=== PATIENT | female | born 1975 | race Caucasian/White ===

== ENCOUNTER 2018-03-17 17:56 | Emergency (ER) | payer BC, MEDICAID ==
[2018-03-17] MEDS ORDERED: METHYLPREDNISOLONE 80MG/VIAL IM ONE (18:07)
--- NOTE | 2018-03-17 18:14 | Emergency Department Record ---
History of Present Illness - General Chief complaint: Extremity Problem Stated complaint: L SHOULDER PAIN Time Seen by Provider: 03/17/18 18:04 Source: Patient Mode of Arrival: Ambulatory Limitations: No limitations - History of Present Illness Initial comments: 42 yo female presents with left shoulder pain. The pain has been present for about 3 months. She has pain with lifting. No specific injury. No numbness, tingling, or redness. She fells the pain across the top of the shoulder. No history of shoulder surgery. No neck pain. No other current joint pains. She is waiting for her PCP to schedule and MRI but she has not had X rays. Onset/Timin -: Month(s) Location: Left, Shoulder -: Yes Arthralgia Radiation: Proximal Quality: Aching, Burning Improves with: Immobilization Worsens with: Palpation, Weight bearing Associated Symptoms: Denies other symptoms - Related Data Home Medications Medication Instructions Recorded Confirmed Last Taken Citalopram Hydrobromide [Celexa] 60 mg PO DAILY 03/17/18 03/17/18 1 Day Ago ~03/16/18 Previous Rx's Medication Instructions Recorded Clonazepam [Klonopin] 0.5 mg PO QHS PRN #0 tablet 11/17/15 Enalapril Maleate [Vasotec] 20 mg PO QHS tablet 11/17/15 Methylprednisolone [Medrol Dose 0 mg PO UD #1 tab.ds.pk 03/17/18 Pack] Allergies Allergy/AdvReac Type Severity Reaction Status Date / Time doxycycline [DOXYCYCLINE] Allergy Intermediate VOMITING Verified 03/17/18 18:05 erythromycin base Allergy Intermediate VOMITING Verified 03/17/18 18:05 [ERYTHROMYCIN BASE] Penicillins [PENICILLINS] Allergy Unknown PT UNSURE Verified 03/17/18 18:05 OF REACTION Travel Screening - Travel/Exposure Within Last 30 Days Have you traveled within the last 30 days?: No - Travel/Exposure Within Last Year Have you traveled outside the [place] in the last year?: No - Additonal Travel Details Have you been exposed to anyone with a communicable illness?: No - Travel Symptoms Symptom Screening: None Review of Systems Constitutional: Denies: Chills, Fever, Malaise, Weakness Eyes: Denies: Eye discharge ENT: Denies: Congestion Respiratory: Denies: Cough Cardiovascular: Denies: Chest pain Endocrine: Denies: Fatigue Gastrointestinal: Denies: Abdominal pain, Diarrhea, Nausea, Vomiting Genitourinary: Denies: Dysuria Musculoskeletal: Reports: Arthralgia Skin: Denies: Bruising, Change in color, Rash Neurological: Denies: Headache Psychiatric: Denies: Anxiety Hematological/Lymphatic: Denies: Easy bleeding, Easy bruising, Swollen glands Past Medical History - SOCIAL HISTORY Smoking Status: Current every day smoker Alcohol Use: None Drug Use: None - RESPIRATORY Hx Respiratory Disorders: No Hx Sleep Apnea: Yes Comment:: wears CPAP - CARDIOVASCULAR Hx Cardio Disorders: No Hx Hypertension: Yes - NEURO Hx Neuro Disorders: No - GI Hx GI Disorders: No Hx Reflux: Yes - Hx Genitourinary Disorders: No Hx Kidney Stones: Yes Hx UTI: Yes - ENDOCRINE Hx Endocrine Disorders: No - MUSCULOSKELETAL Hx Musculoskeletal Disorders: No - PSYCH Hx Psych Problems: Yes Hx Depression: Yes - HEMATOLOGY/ONCOLOGY Hx Hematology/Oncology Disorders: No Family Medical History Any Significant Family History?: Yes Family Hx Comment (NOT TO BE USED IN PLACE OF ITEMS BELOW): Mom and dad heart disease Hx Heart Disease: Father, Mother, Grandparents Physical Exam - General General Appearance: Alert, Oriented x3, Cooperative, No acute distress Limitations: No limitations - Head Head exam: Atraumatic, Normal inspection - Eye Eye exam: Normal appearance - ENT ENT exam: Normal exam Ear exam: Normal external inspection Nasal Exam: Normal inspection Mouth exam: Normal external inspection - Neck Neck exam: Normal inspection - Respiratory Respiratory exam: Normal lung sounds bilaterally. negative: Respiratory distress - Cardiovascular Cardiovascular Exam: Regular rate, Normal rhythm, Normal heart sounds Peripheral Pulses: 2+: Radial (L) - Extremities Extremities exam: Normal inspection, Full ROM, Normal capillary refill, Tenderness. negative: Joint swelling Image of Full Body: 1 - No pain with internal or external rotation, no warmth or redness, no visible swelling, pain does occur with abduction passive and active - Neurological Neurological exam: Alert, Normal gait, Oriented X3. negative: Motor sensory deficit - Psychiatric Psychiatric exam: Normal mood, Suicidal ideation. negative: Agitated, Anxious - Skin Skin exam: Dry, Intact, Normal color, Warm Course Vital Signs 03/17/18 17:58 Temperature 98.8 F Pulse Rate 73 Respiratory 16 Rate Blood Pressure 146/83 Pulse Ox 98 - Reevaluation(s) Reevaluation #1: 03/17/18 18:14 The examination is consistent with possible rotator cuff disease XR ordered given she has never had an XR 03/17/18 18:36 XR reviewed. No acute process. Disposition Disposition: Discharge Clinical Impression: Rotator cuff tendinitis Qualifiers: Laterality: left Qualified Code(s): M75.82 - Other shoulder lesions, left shoulder Shoulder pain, acute Qualifiers: Laterality: left Qualified Code(s): M25.512 - Pain in left shoulder Disposition: Home, Self-Care Condition: (1) Good Instructions: Rotator Cuff Tendinitis (ED) Additional Instructions: You may apply ice if you have pain or swelling Take the Medrol Dose pack as directed Use the sling for support only. Remove it every 4-6 hours and gently move your shoulder to prevent it from getting stiff Prescriptions: Methylprednisolone [Medrol Dose Pack] 0 mg PO UD #1 tab.ds.pk Forms: Patient Portal Access Time of Disposition: 18:15 Quality - Quality Measures Quality Measures: N/A - Blood Pressure Screening Does Patient Have Any of the Following: No Blood Pressure Classification: Pre-Hypertensive BP Reading Systolic Measurement: 146 Diastolic Measurement: 83 Screening for High Blood Pressure: < Pre-Hypertensive BP, F/U Documented > [ G8950] Pre-Hypertensive Follow-up Interventions: Referral to alternative/primary care provider.
--- NOTE | 2018-03-18 14:04 | RADIOLOGY REPORT ---
EXAM: SHOULDER, LEFT HISTORY: LEFT SHOULDER PAIN DUE TO LIFTING STRAIN. TECHNIQUE: Three views left shoulder. COMPARISON: None. ENCOUNTER: Initial. FINDINGS: Mild spurring at the AC joint. The left shoulder appears otherwise essentially negative. There is probably a small benign-appearing area of sclerosis in the glenoid. No definite acute fracture or dislocation of the shoulder evident. On the external rotation view, there is some air beneath the left hemidiaphragm, which although nonspecific is presumably either some air within the stomach or the splenic flexure of the colon. IMPRESSION: 1. SOME DEGENERATIVE CHANGE AT THE AC JOINT. 2. NO DEFINITE FRACTURE OR DISLOCATION OF THE LEFT SHOULDER EVIDENT. 3. SOME AIR BENEATH THE LEFT HEMIDIAPHRAGM IS PRESUMABLY WITHIN EITHER THE STOMACH OR SPLENIC FLEXURE OF THE COLON, DESCRIBED ABOVE. JOB NUMBER: [id number] [facility]
== END 2018-03-17 18:44 | disposition home or self-care (01) ==
LOC: ER 17:56
DX: M75.102 Unspecified rotator cuff tear or rupture of left shoulder, not specified as traumatic (principal); I10 Essential (primary) hypertension; F17.210 Nicotine dependence, cigarettes, uncomplicated
CPT/HCPCS: 96372; 99283; 99284; J1040

== ENCOUNTER 2018-04-23 22:56 | Emergency (ER) | payer BC, MEDICAID ==
--- NOTE | 2018-04-23 23:21 | Emergency Department Record ---
History of Present Illness - General Chief Complaint: Abdominal Pain Stated Complaint: ABD PAIN Time Seen by Provider: 04/23/18 23:15 Source: Patient Mode of Arrival: Ambulatory Limitations: No limitations - History of Present Illness Initial Comments: 43 yo male presents with two days of urinary frequency. She is going 6-8 times daily with urgency. She has very mild burning. No other current symptoms. No fever, chills, nausea, vomiting, diarrhea. No flank pain. She otherwise feels normal. Twice at night she had incontinence due to urgency. No incontinence during the daytime. MD Complaint: Other (Urinary frequency) -: Days(s) (2) Location: Suprapubic Radiation: Suprapubic Migration to: Suprapubic Quality: Fullness Consistency: Intermittent Improves With: Nothing Worsens With: Nothing Context: Other Associated Symptoms: Denies other symptoms - Related Data Previous Rx's Medication Instructions Recorded Clonazepam [Klonopin] 0.5 mg PO QHS PRN #0 tablet 11/17/15 Enalapril Maleate [Vasotec] 20 mg PO QHS tablet 11/17/15 Methylprednisolone [Medrol Dose 0 mg PO UD #1 tab.ds.pk 03/17/18 Pack] Allergies Allergy/AdvReac Type Severity Reaction Status Date / Time doxycycline [DOXYCYCLINE] Allergy Intermediate VOMITING Verified 03/17/18 18:05 erythromycin base Allergy Intermediate VOMITING Verified 03/17/18 18:05 [ERYTHROMYCIN BASE] Penicillins [PENICILLINS] Allergy Unknown PT UNSURE Verified 03/17/18 18:05 OF REACTION Review of Systems Constitutional: Denies: Chills, Fever, Malaise, Weakness Eyes: Denies: Eye discharge, Eye pain ENT: Denies: Congestion, Throat pain Respiratory: Denies: Cough, Dyspnea, Hemoptysis, Wheezes Cardiovascular: Denies: Chest pain, Palpitations, Syncope Endocrine: Denies: Fatigue Gastrointestinal: Reports: As per HPI, Abdominal pain. Denies: Diarrhea, Nausea , Vomiting Genitourinary: Reports: Dysuria, Frequency, Urgency Musculoskeletal: Denies: Arthralgia, Back pain, Myalgia, Neck pain Skin: Denies: Bruising, Change in color, Rash Neurological: Denies: Headache Psychiatric: Denies: Anxiety Hematological/Lymphatic: Denies: Easy bleeding, Easy bruising Past Medical History - SOCIAL HISTORY Smoking Status: Current every day smoker Drug Use: None - RESPIRATORY Hx Respiratory Disorders: No Hx Sleep Apnea: Yes Comment:: wears CPAP - CARDIOVASCULAR Hx Cardio Disorders: No Hx Hypertension: Yes - NEURO Hx Neuro Disorders: No - GI Hx GI Disorders: No Hx Reflux: Yes - Hx Genitourinary Disorders: No Hx Kidney Stones: Yes Hx UTI: Yes - ENDOCRINE Hx Endocrine Disorders: No - MUSCULOSKELETAL Hx Musculoskeletal Disorders: No - PSYCH Hx Psych Problems: Yes Hx Depression: Yes - HEMATOLOGY/ONCOLOGY Hx Hematology/Oncology Disorders: No Family Medical History Family Hx Comment (NOT TO BE USED IN PLACE OF ITEMS BELOW): Mom and dad heart disease Hx Heart Disease: Father, Mother, Grandparents Physical Exam - General General Appearance: Alert, Oriented x3, Cooperative, No acute distress Limitations: No limitations - Head Head exam: Atraumatic, Normal inspection - Eye Eye exam: Normal appearance, PERRL. negative: Conjunctival injection, Scleral icterus - ENT ENT exam: Normal exam Ear exam: Normal external inspection Nasal Exam: Normal inspection Mouth exam: Normal external inspection - Neck Neck exam: Normal inspection - Respiratory Respiratory exam: Normal lung sounds bilaterally. negative: Respiratory distress - Cardiovascular Cardiovascular Exam: Regular rate, Normal rhythm, Normal heart sounds - GI/Abdominal GI/Abdominal exam: Soft. negative: Distended, Guarding, Tenderness - Rectal Rectal exam: Deferred - exam: Deferred - Extremities Extremities exam: Normal inspection - Back Back exam: Denies: CVA tenderness (R), CVA tenderness (L) - Neurological Neurological exam: Alert, Oriented X3 - Psychiatric Psychiatric exam: Normal affect, Normal mood. negative: Agitated, Anxious - Skin Skin exam: Dry, Intact, Normal color, Warm Course Vital Signs 04/23/18 23:10 Temperature 98.7 F Pulse Rate [ 82 Pulse Ox Probe] Respiratory 20 Rate Blood Pressure 120/75 [Left Arm] Pulse Ox 100 - Reevaluation(s) Reevaluation #1: The UA was negative for glucose or infection. The accu check was normal. Bladder scan was 65-75. No retention Labs and CT ordered as well with negative work up at this point. 04/23/18 23:47 04/24/18 00:09 UCG is negative 04/24/18 00:27 The CBC and the CMP are normal. 04/24/18 00:53 The [facility] was reviewed. No acute process. There is a calcified fibroid that does cause a mass effect on the bladder possibly causing the patient's symptoms. We discussed the results. The recommendation is to see her [employer] for a consultation of the CT findings. No other acute or significant process noted on the labs, urine or CT. Medical Decision Making - Lab Data Result diagrams: 04/23/18 23:57 04/23/18 23:57 Disposition Disposition: Discharge Clinical Impression: Dysuria Uterine fibroid Qualifiers: Uterine leiomyoma location: unspecified location Qualified Code(s): D25.9 - Leiomyoma of uterus, unspecified Disposition: Home, Self-Care Condition: (1) Good Instructions: Dysuria (ED), Uterine Fibroids (ED) Additional Instructions: Call your doctor for the next available follow up appointment Return to the ER for a recheck if worse, fevers, vomiting, uncontrolled pain or any new concerns or questions Review this ER visit and the tests performed with your family doctor as well as your [employer] to discuss the findings of the fibroid in your uterus that could be pressing on your bladder. Referrals: TRUMAN FRANCISCO D.O. [DOCTOR OF OSTEOPATH] - Forms: Patient Portal Access Time of Disposition: 01:03 Quality - Quality Measures Quality Measures: N/A - Blood Pressure Screening Does Patient Have Any of the Following: No Blood Pressure Classification: Normal BP Reading Systolic Measurement: 117 Diastolic Measurement: 66 Screening for High Blood Pressure: < Normal BP, F/U Not Required > [G8783]
[2018-04-23 23:28] LABS: URINE APPEARANCE SL CLOUDY; URINE BILIRUBIN NEGATIVE (NEGATIVE); URINE BLOOD NEGATIVE (NEGATIVE); URINE COLOR YELLOW; URINE GLUCOSE (UA) NEGATIVE (NEGATIVE); URINE KETONE 15 mg/dL (NEGATIVE); URINE LEUKOCYTE ESTERASE NEGATIVE (NEGATIVE); URINE NITRITE NEGATIVE (NEGATIVE); URINE PROTEIN NEGATIVE (NEGATIVE); URINE UROBILINOGEN 0.2 E.U./dL (0.20 - 1.00)
[2018-04-24 00:07] LABS: BASO % 0.3 % (0-6); EOS % 1.7 % (0-6); GRAN % 53.7 % (47-80); HEMOGLOBIN 13.4 gm/dl (11.6-16.0); LYMPH % 38.3 % (16-45); MEAN CORPUSCULAR HEMOGLOBIN 31.8 pg (27-33); MEAN CORPUSCULAR HGB CONC 33.5 g/dl (32-36); MEAN PLATELET VOLUME 9.1 fl (7.4-10.4); PLATELET COUNT 266 K/uL (130-400); RED BLOOD COUNT 4.21 M/uL (3.80-5.40); RED CELL DISTRIBUTION WIDTH 12.5 % (11.5-14.5); WHITE BLOOD COUNT W/O DIFF 8.8 K/uL (4.2-12.2)
[2018-04-24 00:15] LABS: BLOOD UREA NITROGEN 10 mg/dL (6-20); CREATININE 0.6 mg/dL (0.5-0.9); EST GLOMERULAR FILTRATION RATE > 60 mL/min
[2018-04-24 00:16] LABS: TOTAL PROTEIN 7.1 g/dL (6.6-8.7)
[2018-04-24 00:18] LABS: GLUCOSE,RANDOM 83 mg/dL (74-109)
[2018-04-24 00:20] LABS: ALB/GLOB RATIO 1.7 (1.1-1.8); ALBUMIN 4.5 g/dL (4.0-5.0); ALKALINE PHOSPHATASE 82 U/L (45-87); ALT/SGPT 15 U/L (<33); AST/SGOT 13 U/L (10.0-35.0)
--- NOTE | 2018-04-26 10:26 | CT SCAN REPORT ---
EXAM: CT SCAN ABDOMEN/PELVIS WO CONTRAST HISTORY: ABDOMINAL PAIN, INCONTINENCE, CONSTIPATION FOR THREE DAYS. TECHNIQUE: Noncontrast CT abdomen and pelvis. COMPARISON: None. FINDINGS: Lung bases are clear. Tiny 2 mm low-attenuation focus in the right hepatic lobe, most likely a cyst. Otherwise unremarkable appearance of the liver. Unremarkable appearance of the gallbladder, spleen, adrenal glands, and pancreas. Small round low-attenuation lesions within the left renal cortex, most likely simple cysts. No hydronephrosis. No calculi detected. Mild calcification of the aortoiliac arterial access without aneurysmal dilation. No focal colonic thickening or inflammatory change. Normal appendix. Stomach is mildly distended with likely ingested material. Small bowel is nondilated. No mesenteric or retroperitoneal adenopathy. No free air or free fluid. Round structure within the anterior uterine body with dense peripheral calcifications, likely a fibroid, resulting in mass effect on the adjacent urinary bladder. Otherwise, unremarkable appearance of the bladder. No definite acute osseous findings. IMPRESSION: 1. NO ACUTE FINDINGS IN THE ABDOMEN OR PELVIS. 2. LIKELY PARTIALLY CALCIFIED ANTERIOR SUBSEROSAL UTERINE FIBROID RESULTING IN FOCAL MASS EFFECT ON THE URINARY BLADDER. 3. SUGGESTION OF SMALL HEPATIC AND LEFT RENAL CYSTS. Preliminary report provided by the [employer]radiology Service. JOB NUMBER: [id number] [facility]
== END 2018-04-24 01:13 | disposition home or self-care (01) ==
LOC: ER 22:56
DX: R30.0 Dysuria (principal); R35.0 Frequency of micturition; D25.9 Leiomyoma of uterus, unspecified; I10 Essential (primary) hypertension; F17.210 Nicotine dependence, cigarettes, uncomplicated
CPT/HCPCS: 36416; 74176; 80053; 81003; 81025; 82948; 85025; 99283; 99284

== ENCOUNTER 2018-07-19 19:10 | Emergency (ER) | payer BC, MEDICAID ==
[2018-07-19] MEDS ORDERED: 0.9 % SODIUM CHLORIDE 1000ML 1,000 ML IV SCH (20:00)
--- NOTE | 2018-07-19 20:00 | Emergency Department Record ---
History of Present Illness - General Chief complaint: Female Urogenital Problem Stated complaint: VAGINAL BLEEDING Time Seen by Provider: 07/19/18 19:42 Source: Patient Mode of Arrival: Ambulatory Limitations: No limitations - History of Present Illness Initial comments: 43 yo female s/p total hysterectomy 2.5 weeks ago presents to ED for evaluation of vaginal discharge, upper abdominal pain/low back pain, and low-grade fevers ( 99.4) at home that began 2 days ago. Patient denies urinary symptoms, cough, or change in stools on examination. Patient reports that her abdominal wall incisions are healing well, denies drainage or erythema at any site. Patient denies health problems at her baseline. MD Complaint: Other Onset/Timin -: Days(s) Radiation: L flank, R flank Severity: Mild Severity scale (1-10): 2 Quality: Aching Consistency: Constant Improves with: Medication Patient : No Associated Symptoms: Denies other symptoms - Related Data Home Medications Medication Instructions Recorded Confirmed Last Taken Margie-3 Fatty Acids/Fish Oil [Fish 2,000 mg PO DAILY 07/19/18 07/19/18 07/19/18 Oil 1,000 mg Capsule] Previous Rx's Medication Instructions Recorded Clonazepam [Klonopin] 0.5 mg PO QHS PRN #0 tablet 11/17/15 Nitrofurantoin [place] [Macrobid] 100 mg PO BID #13 capsule 07/19/18 Allergies Allergy/AdvReac Type Severity Reaction Status Date / Time doxycycline [DOXYCYCLINE] Allergy Intermediate VOMITING Verified 03/17/18 18:05 erythromycin base Allergy Intermediate VOMITING Verified 03/17/18 18:05 [ERYTHROMYCIN BASE] Penicillins [PENICILLINS] Allergy Unknown PT UNSURE Verified 03/17/18 18:05 OF REACTION Travel Screening - Travel/Exposure Within Last 30 Days Have you traveled within the last 30 days?: No - Travel/Exposure Within Last Year Have you traveled outside the [place] in the last year?: No - Additonal Travel Details Have you been exposed to anyone with a communicable illness?: No - Travel Symptoms Symptom Screening: None Review of Systems Constitutional: Reports: Fever. Denies: Chills, Malaise, Night sweats Eyes: Denies: Eye discharge, Eye pain ENT: Denies: Congestion, Ear pain, Epistaxis Respiratory: Denies: Cough, Dyspnea Cardiovascular: Denies: Chest pain, Dyspnea on exertion Endocrine: Denies: Fatigue, Heat or cold intolerance Gastrointestinal: Reports: Abdominal pain. Denies: Nausea, Vomiting Genitourinary: Reports: Discharge. Denies: Dysuria, Incontinence, Retention Musculoskeletal: Reports: Back pain. Denies: Arthralgia Skin: Denies: Bruising, Change in color, Change in hair/nails Neurological: Denies: Abnormal gait, Confusion, Headache, Seizure Psychiatric: Denies: Anxiety Hematological/Lymphatic: Denies: Anemia, Blood Clots Past Medical History - SOCIAL HISTORY Smoking Status: Former smoker Alcohol Use: None Drug Use: None - RESPIRATORY Hx Respiratory Disorders: No Hx Sleep Apnea: Yes Comment:: wears CPAP - CARDIOVASCULAR Hx Cardio Disorders: Yes Hx Hypertension: Yes - NEURO Hx Neuro Disorders: No - GI Hx GI Disorders: No Hx Reflux: No - Hx Genitourinary Disorders: Yes Hx Kidney Stones: Yes Hx UTI: Yes - ENDOCRINE Hx Endocrine Disorders: No - MUSCULOSKELETAL Hx Musculoskeletal Disorders: No - PSYCH Hx Psych Problems: Yes Hx Anxiety: Yes Hx Depression: Yes - HEMATOLOGY/ONCOLOGY Hx Hematology/Oncology Disorders: No Family Medical History Any Significant Family History?: Yes Family Hx Comment (NOT TO BE USED IN PLACE OF ITEMS BELOW): Mom and dad heart disease Hx Heart Disease: Father, Mother, Grandparents Physical Exam - General General Appearance: Alert, Oriented x3, Cooperative, Mild distress Limitations: No limitations - Head Head exam: Atraumatic, Normocephalic, Normal inspection Head exam detail: negative: Abrasion, Contusion, Palafox's sign, General tenderness, Hematoma, Laceration - Eye Eye exam: Normal appearance. negative: Conjunctival injection, Periorbital swelling, Periorbital tenderness, Scleral icterus - ENT Ear exam: negative: Auricular hematoma, Auricular trauma Nasal Exam: negative: Active bleeding, Discharge, Dried blood, Foreign body Mouth exam: negative: Drooling, Laceration, Muffled voice, Tongue elevation - Neck Neck exam: Normal inspection. negative: Meningismus, Tenderness - Respiratory Respiratory exam: Normal lung sounds bilaterally. negative: Rales, Respiratory distress, Rhonchi, Stridor - Cardiovascular Cardiovascular Exam: Regular rate, Normal rhythm, Normal heart sounds - GI/Abdominal GI/Abdominal exam: Soft, Tenderness (Mild TTP LUQ, RUQ on examination, no rebound/guarding/peritoneal signs. Incision sites are all well-healed on examination.). negative: Rebound, Rigid - Rectal Rectal exam: Deferred - exam: Deferred - Extremities Extremities exam: Normal inspection. negative: Pedal edema, Tenderness - Back Back exam: Denies: CVA tenderness (R), CVA tenderness (L) - Neurological Neurological exam: Alert, Normal gait, Oriented X3 - Psychiatric Psychiatric exam: Normal affect, Normal mood - Skin Skin exam: Normal color. negative: Abrasion Type of lesion: negative: abrasion Course Vital Signs 07/19/18 19:25 Temperature 99.3 F Pulse Rate [ 80 Pulse Ox Probe] Respiratory 20 Rate Blood Pressure 144/89 [Left Arm] Pulse Ox 100 - Reevaluation(s) Reevaluation #1: 07/19/18 20:20 Laboratory studies were reviewed and are grossly unremarkable except for the following: UA: 0-2 RBCs 10-15 WBCs 0-2 Epithelial cells 2+ Bacteria Patient is going for CT imaging a this time. Reevaluation #2: 07/19/18 21:01 CT Abdomen/Pelvis: Post-operative changes No post-operative fluid collection is present Patient was updated on all results, will initiate treatment for UTI with Macrobid given the patient's allergy list. Patient is well appearing, instructed to call Dr. Randolph tomorrow for a follow- up appointment. Patient appears stable for discharge at this time. Medical Decision Making - Lab Data Result diagrams: 07/19/18 19:55 07/19/18 19:55 Disposition Disposition: Discharge Clinical Impression: UTI (urinary tract infection) Qualifiers: Urinary tract infection type: acute cystitis Hematuria presence: without hematuria Qualified Code(s): N30.00 - Acute cystitis without hematuria Disposition: Home, Self-Care Condition: (2) Stable Instructions: Urinary Tract Infection in Women (ED) Additional Instructions: Return to ED if your symptoms worsen or if you have any concerns. Macrobid as directed. Follow-up with Dr. Randolph in 1-3 days as directed. Prescriptions: Nitrofurantoin [place] [Macrobid] 100 mg PO BID #13 capsule Forms: Patient Portal Access Time of Disposition: 21:04 Quality - Quality Measures Quality Measures: N/A - Blood Pressure Screening Does Patient Have Any of the Following: No Blood Pressure Classification: Pre-Hypertensive BP Reading Systolic Measurement: 148 Diastolic Measurement: 85 Screening for High Blood Pressure: < Pre-Hypertensive BP, F/U Documented > [ G8950] Pre-Hypertensive Follow-up Interventions: Referral to alternative/primary care provider.
[2018-07-19 20:05] LABS: BASO % 0.9 % (0-6); EOS % 3.5 % (0-6); GRAN % 42.7 % (47-80); HEMATOCRIT 37.7 % (35.0-47.0); HEMOGLOBIN 12.7 gm/dl (11.6-16.0); LYMPH % 47.6 % (16-45); MEAN CELL VOLUME 96.2 fl (81-97); MEAN CORPUSCULAR HEMOGLOBIN 32.4 pg (27-33); MEAN CORPUSCULAR HGB CONC 33.7 g/dl (32-36); MEAN PLATELET VOLUME 8.7 fl (7.4-10.4); MONO % 5.3 % (0-9); PLATELET COUNT 328 K/uL (130-400); RED BLOOD COUNT 3.92 M/uL (3.80-5.40); RED CELL DISTRIBUTION WIDTH 11.7 % (11.5-14.5); WHITE BLOOD COUNT W/O DIFF 5.7 K/uL (4.2-12.2)
[2018-07-19 20:06] LABS: URINE APPEARANCE SL CLOUDY; URINE BILIRUBIN NEGATIVE (NEGATIVE); URINE BLOOD TRACE-I (NEGATIVE); URINE COLOR YELLOW; URINE GLUCOSE (UA) NEGATIVE (NEGATIVE); URINE KETONE NEGATIVE (NEGATIVE); URINE LEUKOCYTE ESTERASE SMALL (NEGATIVE); URINE NITRITE NEGATIVE (NEGATIVE); URINE PROTEIN NEGATIVE (NEGATIVE); URINE UROBILINOGEN 0.2 E.U./dL (0.20 - 1.00)
[2018-07-19 20:14] LABS: BLOOD UREA NITROGEN 8 mg/dL (6-20); CREATININE 0.6 mg/dL (0.5-0.9); EST GLOMERULAR FILTRATION RATE > 60 mL/min; TOTAL PROTEIN 7.7 g/dL (6.6-8.7); URINE BACTERIA 2+; URINE EPITHELIAL CELLS 0 - 2 (FEW); URINE MUCUS LIGHT; URINE RBC 0 - 2 (NONE SEEN)
[2018-07-19 20:16] LABS: GLUCOSE,RANDOM 97 mg/dL (74-109)
[2018-07-19 20:19] LABS: ALB/GLOB RATIO 1.7 (1.1-1.8); ALBUMIN 4.8 g/dL (4.0-5.0); ALKALINE PHOSPHATASE 81 U/L (35-104); ALT/SGPT 22 U/L (<33); AST/SGOT 20 U/L (10.0-35.0)
[2018-07-19] MEDS ORDERED: NITROFURANTOIN MONO 100 MG CAPSULE PO ONE (21:04)
--- NOTE | 2018-07-21 08:41 | CT SCAN REPORT ---
EXAM: CT SCAN OF THE ABDOMEN AND PELVIS HISTORY: PATIENT HAS HISTORY OF KIDNEY STONES. PATIENT HAS PAIN IN THE LOWER ABDOMEN TO THE FEET. TECHNIQUE: Serial axial CT scan of the abdomen and pelvis was performed at 2.5 mm intervals from the dome of the diaphragm down to the pubic symphysis following the intravenous administration of 100 ml of Omnipaque 300. Comparison: CT scan of the abdomen and pelvis dated 04/24/18 is provided. FINDINGS: The lung windows of the lung bases demonstrate no CT evidence of a focal infiltrate or pleural effusion. The visualized heart size and contour is within normal limits. The liver demonstrates a 1.3 cm hypodensity within the posterior right hepatic lobe which is unchanged with respect to the prior CT scan. I suspect this finding likely represents a hemangioma. If there is further clinical concern then MRI of the liver can be obtained for further evaluation. The spleen, pancreas, gallbladder, and adrenal glands are unremarkable. There is no CT evidence of hydronephrosis or hydroureter. Bilateral renal cysts are unchanged with respect to the prior examination. There is no CT evidence of a renal or ureteral calculi. The contour, caliber, and flow within the abdominal aorta is within normal limits. There is no CT evidence of retroperitoneal, pelvic, or inguinal lymphadenopathy. This is nonspecific and nonobstructive. There is no CT evidence of free intraperitoneal fluid or free intraperitoneal air. Bilateral ovaries appear unremarkable. End plate herniation pin is noted at the superior end plate of the L1 vertebral body. This finding is unchanged with respect to the prior examination. IMPRESSION: POSTOPERATIVE CHANGES OF THE UTERUS ARE NOTED DISCUSSED ABOVE. NO ABNORMAL FLUID COLLECTIONS ARE IDENTIFIED TO SUGGEST AN INTRAABDOMINAL ABSCESS. JOB NUMBER: [id number] [facility] [place]
== END 2018-07-19 21:24 | disposition home or self-care (01) ==
LOC: ER 19:10
DX: N30.00 Acute cystitis without hematuria (principal); M54.5 Low back pain; N93.9 Abnormal uterine and vaginal bleeding, unspecified; I10 Essential (primary) hypertension; F17.210 Nicotine dependence, cigarettes, uncomplicated; Z90.710 Acquired absence of both cervix and uterus
CPT/HCPCS: 99284 ×2; 85025; 80053; 81001; 74177; Q9967; J7030

== ENCOUNTER 2018-11-09 21:24 | Emergency (ER) | payer MEDICAID ==
--- NOTE | 2018-11-09 21:31 | Emergency Department Record ---
History of Present Illness - General Chief complaint: ENT Stated complaint: EYE IRRATATION/PINK EYE Time Seen by Provider: 11/09/18 21:29 Source: Patient Mode of Arrival: Ambulatory Limitations: No limitations - History of Present Illness Initial comments: 43 yo female presents to ED for evaluation of discharge from the eyes bilaterally that began this morning. Patient denies trauma or injury to the eye, denies change in vision. Patient reports similar symptoms previously related to conjunctivitis. Patient denies other symptoms on examination. Alfredo harris is concerned about infection as she has an immuno-compromised son at home. MD complaint: Other Onset/Timin -: Days(s) Consistency: Constant Improves with: None Worsens with: None - Related Data Previous Rx's Medication Instructions Recorded Clonazepam [Klonopin] 0.5 mg PO QHS PRN #0 tablet 11/17/15 Nitrofurantoin [place] [Macrobid] 100 mg PO BID #13 capsule 07/19/18 Ciprofloxacin HCl 0.3% Drops 1 drop OP QID #1 btl 11/09/18 [Ciprofloxacin HCl] Allergies Allergy/AdvReac Type Severity Reaction Status Date / Time doxycycline [DOXYCYCLINE] Allergy Intermediate VOMITING Verified 03/17/18 18:05 erythromycin base Allergy Intermediate VOMITING Verified 03/17/18 18:05 [ERYTHROMYCIN BASE] Penicillins [PENICILLINS] Allergy Unknown PT UNSURE Verified 03/17/18 18:05 OF REACTION Review of Systems Constitutional: Denies: Chills, Fever, Malaise, Night sweats Eyes: Reports: Eye discharge. Denies: Eye pain, Photophobia, Vision change ENT: Denies: Congestion, Ear pain, Epistaxis Respiratory: Denies: Cough, Dyspnea Cardiovascular: Denies: Chest pain, Dyspnea on exertion Endocrine: Denies: Fatigue, Heat or cold intolerance Gastrointestinal: Denies: Abdominal pain, Nausea, Vomiting Genitourinary: Denies: Incontinence, Retention Musculoskeletal: Denies: Arthralgia, Back pain Skin: Denies: Bruising, Change in color Neurological: Denies: Abnormal gait, Confusion, Headache, Seizure Psychiatric: Denies: Anxiety Hematological/Lymphatic: Denies: Anemia, Blood Clots Past Medical History - SOCIAL HISTORY Smoking Status: Former smoker Alcohol Use: None Drug Use: None - RESPIRATORY Hx Respiratory Disorders: Yes Hx Sleep Apnea: Yes Comment:: wears CPAP - CARDIOVASCULAR Hx Cardio Disorders: Yes Hx Hypertension: Yes - NEURO Hx Neuro Disorders: No - GI Hx GI Disorders: No Hx Reflux: No - Hx Genitourinary Disorders: Yes Hx Kidney Stones: Yes Hx UTI: Yes - ENDOCRINE Hx Endocrine Disorders: No - MUSCULOSKELETAL Hx Musculoskeletal Disorders: No - PSYCH Hx Psych Problems: Yes Hx Anxiety: Yes Hx Depression: Yes - HEMATOLOGY/ONCOLOGY Hx Hematology/Oncology Disorders: No Family Medical History Any Significant Family History?: Yes Family Hx Comment (NOT TO BE USED IN PLACE OF ITEMS BELOW): Mom and dad heart disease Hx Heart Disease: Father, Mother, Grandparents Physical Exam - General General Appearance: Alert, Oriented x3, Cooperative, No acute distress Limitations: No limitations - Head Head exam: Atraumatic, Normocephalic, Normal inspection Head exam detail: negative: Abrasion, Contusion, Palafox's sign, General tenderness, Hematoma, Laceration - Eye Eye exam: Conjunctival injection (Mild), Other (Mild discharge present to the medial canthus R>L). negative: Periorbital swelling, Periorbital tenderness, Scleral icterus - ENT Ear exam: negative: Auricular hematoma, Auricular trauma Nasal Exam: negative: Active bleeding, Discharge, Dried blood, Foreign body Mouth exam: negative: Drooling, Laceration, Muffled voice, Tongue elevation - Neck Neck exam: Normal inspection. negative: Meningismus, Tenderness - Respiratory Respiratory exam: Normal lung sounds bilaterally. negative: Rales, Respiratory distress, Rhonchi, Stridor - Cardiovascular Cardiovascular Exam: Regular rate, Normal rhythm, Normal heart sounds - GI/Abdominal GI/Abdominal exam: Soft. negative: Rebound, Rigid, Tenderness - Rectal Rectal exam: Deferred - exam: Deferred - Extremities Extremities exam: Normal inspection. negative: Pedal edema, Tenderness - Back Back exam: Denies: CVA tenderness (R), CVA tenderness (L) - Neurological Neurological exam: Alert, Normal gait, Oriented X3 - Psychiatric Psychiatric exam: Normal affect, Normal mood - Skin Skin exam: Normal color. negative: Abrasion Type of lesion: negative: abrasion Course - Reevaluation(s) Reevaluation #1: 11/09/18 21:35 History and examination appear c/w conjunctivitis. Due to patient medication allergies, will initiate treatment with Ciprofloxacin QID as directed. Patient appears stable for discharge at this time. Disposition Disposition: Discharge Clinical Impression: Conjunctivitis Qualifiers: Conjunctivitis type: acute Acute conjunctivitis type: unspecified Laterality: bilateral Qualified Code(s): H10.33 - Unspecified acute conjunctivitis, bilateral Disposition: Home, Self-Care Condition: (2) Stable Instructions: Conjunctivitis (ED) Additional Instructions: Return to ED if your symptoms worsen or if you have any concerns. Cipro eye drops as directed. Follow-up with your family doctor in 3-5 days as directed. Prescriptions: Ciprofloxacin HCl 0.3% Drops [Ciprofloxacin HCl] 1 drop OP QID #1 btl Forms: Patient Portal Access Time of Disposition: 21:31 Quality - Quality Measures Quality Measures: N/A - Blood Pressure Screening Does Patient Have Any of the Following: No Blood Pressure Classification: Hypertensive Reading Systolic Measurement: 146 Diastolic Measurement: 75 Screening for High Blood Pressure: < First Hypertensive BP, F/U Documented > [G8950] First Hypertensive Follow-up Interventions: Referral to alternative/primary care provider.
== END 2018-11-09 21:36 | disposition home or self-care (01) ==
LOC: ER 21:24
DX: H10.33 Unspecified acute conjunctivitis, bilateral (principal); I10 Essential (primary) hypertension; Z87.891 Personal history of nicotine dependence
CPT/HCPCS: 99282

== ENCOUNTER 2019-02-21 17:49 | Emergency (ER) | payer OTHER, MEDICAID ==
--- NOTE | 2019-02-21 18:02 | Emergency Department Record ---
History of Present Illness - General Chief Complaint: Fever Stated Complaint: BODY ACHES,SORE NECK Time Seen by Provider: 02/21/19 18:00 Source: Patient, RN notes reviewed - History of Present Illness Initial Comments: fever and body aches and her 6 year old son has lymphoma under treatment - Related Data Previous Rx's Medication Instructions Recorded Clonazepam [Klonopin] 0.5 mg PO QHS PRN #0 tablet 11/17/15 Nitrofurantoin [place] [Macrobid] 100 mg PO BID #13 capsule 07/19/18 Ciprofloxacin HCl 0.3% Drops 1 drop OP QID #1 btl 11/09/18 [Ciprofloxacin HCl] Cephalexin [Keflex] 500 mg PO QID #40 cap 02/21/19 Allergies Allergy/AdvReac Type Severity Reaction Status Date / Time doxycycline [DOXYCYCLINE] Allergy Intermediate VOMITING Verified 03/17/18 18:05 erythromycin base Allergy Intermediate VOMITING Verified 03/17/18 18:05 [ERYTHROMYCIN BASE] Penicillins [PENICILLINS] Allergy Unknown PT UNSURE Verified 03/17/18 18:05 OF REACTION Review of Systems Reviewed: No additional complaints except as noted below Constitutional: Reports: As per HPI. Denies: Chills, Fever, Malaise, Night sweats, Weakness, Weight change Eyes: Reports: As per HPI. Denies: Eye discharge, Eye pain, Photophobia, Vision change ENT: Reports: As per HPI. Denies: Congestion, Dental pain, Ear pain, Epistaxis, Hearing loss, Throat pain Respiratory: Reports: As per HPI. Denies: Cough, Dyspnea, Hemoptysis, Stridor, Wheezes Cardiovascular: Reports: As per HPI. Denies: Arrhythmia, Chest pain, Dyspnea on exertion, Edema, Murmurs, Orthopnea, Palpitations, Paroxysmal nocturnal dyspnea, Rheumatic Fever, Syncope Endocrine: Reports: As per HPI. Denies: Fatigue, Heat or cold intolerance, Polydipsia, Polyuria Gastrointestinal: Reports: As per HPI. Denies: Abdominal pain, Constipation, Diarrhea, Hematemesis, Hematochezia, Melena, Nausea, Vomiting Genitourinary: Reports: As per HPI. Denies: Abnormal menses, Discharge, Dyspareunia, Dysuria, Frequency, Hematuria, Incontinence, Retention, Urgency Musculoskeletal: Reports: As per HPI. Denies: Arthralgia, Back pain, Gout, Joint swelling, Myalgia, Neck pain Skin: Reports: As per HPI. Denies: Bruising, Change in color, Change in hair/nails, Lesions, Pruritus, Rash Neurological: Reports: As per HPI. Denies: Abnormal gait, Confusion, Headache, Numbness, Paresthesias, Seizure, Tingling, Tremors, Vertigo, Weakness Psychiatric: Reports: As per HPI. Denies: Anxiety, Auditory hallucinations, Depression, Homicidal thoughts, Suicidal thoughts, Visual hallucinations Hematological/Lymphatic: Reports: As per HPI. Denies: Anemia, Blood Clots, Easy bleeding, Easy bruising, Swollen glands Past Medical History - SOCIAL HISTORY Smoking Status: Former smoker Drug Use: None - RESPIRATORY Hx Respiratory Disorders: Yes Hx Sleep Apnea: Yes Comment:: wears CPAP - CARDIOVASCULAR Hx Cardio Disorders: Yes Hx Hypertension: Yes - NEURO Hx Neuro Disorders: No - GI Hx GI Disorders: No Hx Reflux: No - Hx Genitourinary Disorders: Yes Hx Kidney Stones: Yes Hx UTI: Yes - ENDOCRINE Hx Endocrine Disorders: No - MUSCULOSKELETAL Hx Musculoskeletal Disorders: No - PSYCH Hx Psych Problems: Yes Hx Anxiety: Yes Hx Depression: Yes - HEMATOLOGY/ONCOLOGY Hx Hematology/Oncology Disorders: No Family Medical History Family Hx Comment (NOT TO BE USED IN PLACE OF ITEMS BELOW): Mom and dad heart disease Hx Heart Disease: Father, Mother, Grandparents Physical Exam - General General Appearance: Alert, Oriented x3, Cooperative, No acute distress - Head Head exam: Normal inspection - Eye Eye exam: Normal appearance, PERRL Pupils: Normal accommodation - ENT ENT exam: Normal exam, Mucous membranes moist, Normal external ear exam, TM's normal bilaterally Ear exam: Normal external inspection. negative: External canal tenderness Nasal Exam: Normal inspection. negative: Discharge, Sinus tenderness Mouth exam: Normal external inspection, Tongue normal Teeth exam: Normal inspection. negative: Dental caries Throat exam: Tonsillar erythema. negative: Tonsillar exudate - Neck Neck exam: Normal inspection, Full ROM, Lymphadenopathy (posterior lymphnodes tender). negative: Tenderness - Respiratory Respiratory exam: Normal lung sounds bilaterally. negative: Respiratory distress - Cardiovascular Cardiovascular Exam: Regular rate, Normal rhythm, Normal heart sounds - GI/Abdominal GI/Abdominal exam: Soft, Normal bowel sounds. negative: Tenderness - Rectal Rectal exam: Deferred - exam: Deferred - Extremities Extremities exam: Normal inspection, Full ROM, Normal capillary refill. negative: Tenderness - Back Back exam: Reports: Normal inspection, Full ROM. Denies: Muscle spasm, Rash noted, Tenderness - Neurological Neurological exam: Alert, Normal gait, Oriented X3, Reflexes normal - Psychiatric Psychiatric exam: Normal affect, Normal mood - Skin Skin exam: Dry, Intact, Normal color, Warm Medical Decision Making - Lab Data Result diagrams: 02/21/19 18:13 Disposition Clinical Impression: Viral syndrome Disposition: Home, Self-Care Condition: (1) Good Instructions: Viral Syndrome (ED) Additional Instructions: tylenol or motrin and drinks lots of fluid wait and see script if she gets sicker start keflex 500 mg four times a day Prescriptions: Cephalexin [Keflex] 500 mg PO QID #40 cap Forms: Patient Portal Access Time of Disposition: 18:52 Quality - Quality Measures Quality Measures: N/A - Blood Pressure Screening Does Patient Have Any of the Following: No Blood Pressure Classification: Pre-Hypertensive BP Reading Systolic Measurement: 125 Diastolic Measurement: 89 Screening for High Blood Pressure: < Pre-Hypertensive BP, F/U Documented > [G8950] Pre-Hypertensive Follow-up Interventions: Referral to alternative/primary care provider.
[2019-02-21 18:32] LABS: ABSOLUTE NEUTROPHIL COUNT 6.36; BASO % 0.3 % (0-6); EOS % 1.5 % (0-6); GRAN % 66.6 % (47-80); HEMATOCRIT 38.7 % (35.0-47.0); LYMPH % 25.4 % (16-45); MEAN CELL VOLUME 93.9 fl (81-97); MEAN CORPUSCULAR HEMOGLOBIN 31.6 pg (27-33); MEAN CORPUSCULAR HGB CONC 33.6 g/dl (32-36); MEAN PLATELET VOLUME 9.2 fl (7.4-10.4); MONO % 6.2 % (0-9); RED BLOOD COUNT 4.12 M/uL (3.80-5.40); WHITE BLOOD COUNT W/O DIFF 9.5 K/uL (4.2-12.2)
[2019-02-21 18:44] LABS: INFLUENZA A NEGATIVE (NEGATIVE); INFLUENZA B NEGATIVE (NEGATIVE)
[2019-02-21 18:51] LABS: PLATELET COUNT 254 K/uL (130-400)
== END 2019-02-21 19:00 | disposition home or self-care (01) ==
LOC: ER 17:49
DX: B34.9 Viral infection, unspecified (principal); M54.2 Cervicalgia; I10 Essential (primary) hypertension; Z87.891 Personal history of nicotine dependence
CPT/HCPCS: 85025; 86308; 87400; 87880; 99283